=== PATIENT | female | born 2000 | race Caucasian/White ===

== ENCOUNTER 2021-10-22 06:05 | Inpatient (IN) | payer OTHER ==
--- NOTE | 2021-10-21 09:11 | P.HPOB ---
History of Present Illness H&P Date: 10/21/21 Chief Complaint: Induction of labor This is 20 y.o. female, 1, para 0, with an estimated date of confinement of 10/22/2021, estimated gestational age of 40-0/7 weeks, who presents for induction of labor. She complains of irregular contractions, pressure and back pain. course has been uncomplicated. labs: Hepatitis B surface antigen-neg RPR-NR Rubella-immune Blood type-O+ Antibody screen-neg HIV-NR Hemoglobin-12.2 Toxoplasma-neg Random glucose-75 GC/Chlamydia/Trich-neg ! hr. GTT-136; 3 hr. 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 Works for [employer] Review of Systems Constitutional: Denies chills, Denies fever Eyes: denies blurred vision, denies pain Ears, nose, mouth and throat: Denies headache, Denies sore throat Cardiovascular: Denies chest pain, Denies shortness of breath Respiratory: Denies cough Gastrointestinal: Reports abdominal pain (irregular contractions) Genitourinary: Reports pelvic pain, Reports , Denies dysuria, Denies hematuria Musculoskeletal: Reports low back pain, Denies myalgias Integumentary: Denies pruritus, Denies rash Neurological: Denies numbness, Denies weakness Psychiatric: Reports anxiety, Denies depression Past Medical History Past Medical History: No Reported History Past Surgical History: No Surgical Hx Reported Past Anesthesia/Blood Transfusion Reactions: No Reported Reaction Past Psychological History: Anxiety Smoking Status: Never smoker Past Alcohol Use History: None Reported Past Drug Use History: None Reported - Past Family History Father Family Medical History: Hypertension Medications and Allergies Home Medications Medication Instructions Recorded Confirmed Type Vit No.179/Iron/Folic 1 each PO 10/21/21 History [ Tablet] Allergies Allergy/AdvReac Type Severity Reaction Status Date / Time No Known Allergies Allergy Verified 10/21/21 09:09 Exam Osteopathic Statement: *. No significant issues noted on an osteopathic structural exam other than those noted in the History and Physical/Consult. HEENT: within normal limits Heart: regular rate and rhythm Lungs: clear to auscultation bilaterally Abdomen: , non-tender Cervix: 1 cm/60%/-2 heart tones: 150's by doppler Extremities: neg. Jluis's Assessment and Plan (1) 40 weeks gestation of Status: Acute Code(s): Z3A.40 - 40 WEEKS GESTATION OF SNOMED Code(s): 76786503 Plan: Admission for oxytocin induction of labor. Expectant management. Epidural anesthesia if desired.
[2021-10-22] MEDS ORDERED: TERBUTALINE 1 MG/ML VIAL SQ PRN (06:27)
[2021-10-22] MEDS ORDERED: CARBOPROST TROMETHAMINE 250 MCG/ML 1 ML AMP IM PRN (06:27)
[2021-10-22] MEDS ORDERED: LIDOCAINE 1% (10MG/ML) FOR IV START INTRADERMA PRN (06:27)
[2021-10-22] MEDS ORDERED: METHYLERGONOVINE 0.2 MG/ML 1 ML AMP IM PRN (06:27)
[2021-10-22] MEDS ORDERED: OXYTOCIN 10 UNIT/ML 1 ML VIAL IM PRN (06:27)
[2021-10-22] MEDS ORDERED: OXYTOCIN 30 UNITS/500 ML NS 30 UNIT in SALINE 1 500ML.BAG IV SCH ×2 (06:27→22:15)
[2021-10-22] MEDS ORDERED: LIDOCAINE 0.5% (PF) 5 MG/ML (50 ML SDV) SQ PRN (06:27)
[2021-10-22] MEDS: LACTATED RINGERS 1,000 ML IV SCH ×3 (06:39→22:26)
[2021-10-22 07:00] LABS: Basophils % (A) 0 %; Eosinophils # (A) 0.1 k/uL (0-0.7); Eosinophils % (A) 1 %; HCT 33.6 % (34.0-46.0); HGB 11.5 gm/dL (11.4-16.0); Lymphocytes # (A) 2.1 k/uL (1.0-4.8); Lymphocytes % (A) 17 %; MCH 30.8 pg (25.0-35.0); MCHC 34.2 g/dL (31.0-37.0); MCV 89.8 fL (80.0-100.0); Mean Platelet Volume 8.4; Monocytes # (A) 0.6 k/uL (0-1.0); Monocytes % (A) 5 %; Neutrophils # (A) 9.1 k/uL (1.3-7.7); Neutrophils % (A) 75 %; Platelet Count 267 k/uL (150-450); RBC 3.74 m/uL (3.80-5.40); RDW 12.8 % (11.5-15.5); WBC 12.1 k/uL (4.0-11.0)
[2021-10-22 07:51] LABS: Amphetamine Screen,Urine Not Detected (NotDetected); Barbiturate Screen,Urine Not Detected (NotDetected); Benzodiazepines Screen,Urine Not Detected (NotDetected); Cocaine Screen,Urine Not Detected (NotDetected); Methadone Screen, Urine Not Detected (NotDetected); Opiate Screen,Urine Not Detected (NotDetected); Oxycodone Screen, Urine Not Detected (NotDetected); Phencyclidine Screen,Urine Not Detected (NotDetected); Tricyclic Antidepressant,Urine Not Detected (NotDetected); Urn Cannabinoid Scrn Detected (NotDetected)
[2021-10-22] MEDS ORDERED: fentaNYL (PF) 50 MCG/ML 5 ML AMP ONE (13:47)
[2021-10-22] MEDS ORDERED: ROPIVACAINE 5 MG/ML 20 ML AMPULE ONE (13:47)
[2021-10-22] MEDS ORDERED: SODIUM CHLORIDE 0.9% 100 ML BAG ONE (13:47)
[2021-10-22] MEDS ORDERED: miSOPROStoL 200 MCG TAB RECTAL STA (21:40)
[2021-10-22] MEDS ORDERED: diphenhydrAMINE 50 MG CAP PO PRN (22:11)
[2021-10-22] MEDS ORDERED: ACETAMINOPHEN TAB 325 MG TAB PO PRN (22:11)
[2021-10-22] MEDS ORDERED: LANOLIN CREAM 5 GM TUBE TOPICAL PRN (22:11)
[2021-10-22] MEDS ORDERED: diphenhydrAMINE 25 MG CAP PO PRN (22:11)
[2021-10-22] MEDS ORDERED: ZOLPIDEM 5 MG TAB PO PRN (22:11)
[2021-10-22] MEDS ORDERED: BENZOCAINE/MENTHOL SPRAY 1 GM/SPRAY AEROSOL TOPICAL PRN (22:11)
[2021-10-22] MEDS ORDERED: HYDROCORTISONE 2.5% RECTAL CREAM 30 GM TUBE RECTAL PRN (22:11)
[2021-10-22] MEDS ORDERED: SIMETHICONE 80 MG CHEWABLE PO PRN (22:11)
[2021-10-22] MEDS ORDERED: diphenhydrAMINE 50 MG/ML 1 ML VIAL IVP PRN ×2 (22:11)
--- NOTE | 2021-10-22 22:20 | P.PROBDLV ---
Vaginal Delivery Note - . Vaginal Delivery Note: The patient progressed to complete dilation after oxytocin induction of labor and artificial rupture of membranes with clear fluid noted. She did initially use next a side for pain control and then did get an epidural. Once reaching complete, she began pushing. She pushed for approximately 45 minutes and then infant's head came to a crown. At this point she precipitously delivered the baby and the bed. Infant was taken to mother's chest and allowed to encarnacion with mother's into skin while waiting for the cord to finish pulsating. Once the chord finished pulsating, cord was clamped and cut. Inspection of the perineum revealed bilateral periurethral and vaginal sulcus tears. The right side was anesthetized with 1% lidocaine and then sutured with 2-0 Vicryl suture in a running locked fashion. Good hemostasis was noted. At this point the placenta was ready to separate and did deliver however membranes were still noted to be attached. I did place a gloved hand within the endometrial cavity to remove a large piece of membrane. Once this was removed oxytocin was opened up and uterus did initially clamped down but then became boggy and filled with clot. Clots were again removed and oxytocin was opened up. She was also given Methergine 0.2 mg IM. This initially did slow the bleeding and the left side of the vaginal vault was then anesthetized with 1% lidocaine and sutured with 3-0 Vicryl suture in a running locked fashion. She still kept flowing and more clots were removed. A gloved hand was again placed up in the uterine cavity and a very ratty contour was palpated within the uterine cavity but no further membranes were palpated. After these clots were removed she was given 1000 g of Cytotec rectally. Uterine massage was also carried out. Finally uterus did firm up fairly well and bleeding was minimal. All sponge counts were correct. All needle counts were correct. Estimated quantitative blood loss is 2400 cc's. Patient will be watched very closely in her recovery and stat CBC will be ordered.
[2021-10-22 23:35] LABS: Basophils % (A) 0 %; Eosinophils # (A) 0.1 k/uL (0-0.7); Eosinophils % (A) 0 %; HCT 30.7 % (34.0-46.0); HGB 10.5 gm/dL (11.4-16.0); Lymphocytes # (A) 0.9 k/uL (1.0-4.8); Lymphocytes % (A) 4 %; MCHC 34.3 g/dL (31.0-37.0); MCV 90.4 fL (80.0-100.0); Mean Platelet Volume 8.6; Monocytes # (A) 0.9 k/uL (0-1.0); Monocytes % (A) 4 %; Neutrophils # (A) 19.2 k/uL (1.3-7.7); Neutrophils % (A) 91 %; Platelet Count 273 k/uL (150-450); RDW 12.7 % (11.5-15.5); WBC 21.2 k/uL (4.0-11.0)
[2021-10-23 05:22] LABS: Basophils % (A) 0 %; Eosinophils # (A) 0.1 k/uL (0-0.7); Eosinophils % (A) 1 %; HCT 24.8 % (34.0-46.0); Lymphocytes # (A) 1.3 k/uL (1.0-4.8); Lymphocytes % (A) 7 %; MCH 30.5 pg (25.0-35.0); MCHC 34.3 g/dL (31.0-37.0); MCV 89.1 fL (80.0-100.0); Mean Platelet Volume 7.8; Monocytes # (A) 0.8 k/uL (0-1.0); Monocytes % (A) 4 %; Neutrophils # (A) 15.5 k/uL (1.3-7.7); Neutrophils % (A) 86 %; Platelet Count 243 k/uL (150-450); RBC 2.79 m/uL (3.80-5.40); RDW 12.9 % (11.5-15.5)
[2021-10-23 05:31] LABS: HGB 8.5 gm/dL (11.4-16.0)
[2021-10-23] MEDS: SENNOSIDES-DOCUSATE SODIUM 1 EACH TAB PO SCH ×2 (07:51→20:12)
[2021-10-23] MEDS: IBUPROFEN 600 MG TAB PO PRN ×2 (07:51→17:21)
[2021-10-23 08:09] VITALS: RESP 16
--- NOTE | 2021-10-23 08:49 | P.PNOBGVD ---
Subjective - Subjective Principal diagnosis: Status post vaginal delivery day #1 Interval history: Patient states she does feel a little weak today. She denies shortness of breath or dizziness, but has not ambulated very much yet. Bleeding has been minimal. She is working at breast-feeding. Pain is fairly well controlled at this time. Patient reports: Reports appetite normal, Reports voiding normally, Reports pain well controlled, Reports ambulating normally [place]: doing well, nursing well Objective - Latest Vital Signs Latest vital signs: Vital Signs Temp Pulse Resp BP Pulse Ox 10/23/21 08:00 98.3 F 94 16 129/80 98 10/23/21 04:00 98.3 F 96 17 137/78 98 10/23/21 00:03 98.0 F 88 16 149/65 10/22/21 23:33 98.1 F 86 16 151/69 98 10/22/21 23:03 99.3 F 86 16 142/63 10/22/21 22:48 98.5 F 98 18 150/67 99 10/22/21 22:33 112 H 18 151/81 97 10/22/21 22:18 109 H 18 126/86 97 10/22/21 22:03 97.9 F 96 18 155/70 100 Intake and Output 10/22/21 10/23/21 10/23/21 22:59 06:59 14:59 Intake Total 267.2 Output Total 2400 153 Balance -2132.8 -153 Intake: Intake, IV Titration 267.2 Amount Oxytocin 30 Units/500 ml 267.2 Ns 30 unit In Saline 1 500ml.bag @ Per Protocol IV .Q0M [facility] Rx#:[id number] Output: Output, Quantitative 2400 153 Blood Loss Other: # Voids 1 2 - Exam Extremities: Present: normal. Absent: tenderness Abdomen: Present: normal appearance, soft. Absent: distention, tenderness Uterus: Present: normal, firm. Absent: tenderness - Labs Labs: Abnormal Lab Results - Last 24 Hours (Table) 10/22/21 10/23/21 Range/Units 22:58 04:48 WBC 21.2 H 18.0 H (4.0-11.0) k/uL RBC 3.40 L 2.79 L (3.80-5.40) m/uL Hgb 10.5 L 8.5 L D (11.4-16.0) gm/dL Hct 30.7 L 24.8 L (34.0-46.0) % Neutrophils # 19.2 H 15.5 H (1.3-7.7) k/uL Lymphocytes # 0.9 L (1.0-4.8) k/uL Assessment and Plan Assessment: Status post vaginal delivery day #1 Acute blood loss anemia due to hemorrhage (1) 40 weeks gestation of Current Visit: No Status: Acute Code(s): Z3A.40 - 40 WEEKS GESTATION OF SNOMED Code(s): 11694209 Plan: Will add iron supplementation today. Patient is encouraged to notify her nurse if she feels dizzy or lightheaded or short of breath. Will recheck CBC sia orrow. Continue to monitor closely.
[2021-10-23] MEDS: FERROUS SULFATE 325 MG TAB PO SCH ×2 (10:05→17:23)
[2021-10-24 06:56] LABS: Basophils % (A) 0 %; Eosinophils # (A) 0.2 k/uL (0-0.7); Eosinophils % (A) 2 %; HCT 22.7 % (34.0-46.0); HGB 7.5 gm/dL (11.4-16.0); Lymphocytes # (A) 2.6 k/uL (1.0-4.8); Lymphocytes % (A) 26 %; MCH 29.6 pg (25.0-35.0); MCHC 33.1 g/dL (31.0-37.0); MCV 89.2 fL (80.0-100.0); Mean Platelet Volume 7.8; Monocytes # (A) 0.6 k/uL (0-1.0); Monocytes % (A) 6 %; Neutrophils # (A) 6.6 k/uL (1.3-7.7); Neutrophils % (A) 65 %; Platelet Count 229 k/uL (150-450); RBC 2.55 m/uL (3.80-5.40); RDW 12.9 % (11.5-15.5); WBC 10.2 k/uL (4.0-11.0)
[2021-10-24] MEDS: SENNOSIDES-DOCUSATE SODIUM 1 EACH TAB PO SCH (08:04)
[2021-10-24] MEDS: IBUPROFEN 600 MG TAB PO PRN (08:04)
--- NOTE | 2021-10-24 08:58 | P.DS ---
Providers Date of admission: 10/22/21 06:05 Expected date of discharge: 10/24/21 Attending physician: Monica Gaming Primary care physician: Stated None - Discharge Diagnosis(es) (1) 40 weeks gestation of Current Visit: No Status: Acute Hospital Course: This is a 20-year-old female 1 para 0 at 40-0/7 weeks who presented for induction of labor. She delivered vaginally a viable female infant with scores of 7 at 1 minute and 9 at 5 minutes and infant weight of 7 lbs. 14 oz. Her delivery was complicated by hemorrhage. Please see delivery note for details of admission and delivery. course has been essentially uncomplicated. She is ambulating without dizziness or lightheadedness. She denies shortness of breath or weakness. Her hemoglobin did drop from the start of 11.5-7.5 today. However it has been stable since yesterday. She would like to go home later today as long as baby is able to go. Baby is currently on a bili blanket. Her lochia has been very light currently. Pain is well- controlled with ibuprofen and Tylenol. Vital signs are stable. Abdomen is soft with fundus firm and nontender. Extremities show negative Homans. Impression is status post vaginal delivery day #1, status post hemorrhage-hemoglobin stable at this time. Plan is to discharge home today. Routine instructions are given. She is advised to continue her vitamins in addition to iron twice a day. She may need to continue stool softeners while she is on the iron. She is advised follow-up in the office in 6 weeks for a check. She is advised to call the office if she has any further questions or concerns prior to her appointment time. She does state she has a breast pump at home. Procedures: Oxytocin induction of labor Spontaneous vaginal delivery of viable female on 10/22/2021 Patient Condition at Discharge: Stable Plan - Discharge Summary New Discharge Prescriptions: New Ferrous Sulfate [Iron (65 MG Elemental)] 325 mg PO BID-W/MEALS #60 tab Ibuprofen [Motrin] 600 mg PO Q6HR PRN #60 tab PRN Reason: Mild Pain (Scale 1 To 3) Discharge Medication List Ferrous Sulfate [Iron (65 MG Elemental)] 325 mg PO BID-W/MEALS #60 tab 10/24/21 [Rx] Ibuprofen [Motrin] 600 mg PO Q6HR PRN #60 tab 10/24/21 [Rx] Follow up Appointment(s)/Referral(s): Monica Gaming DO [Doctor of Osteopathic Medicine] - 12/11/21 11:30 am Activity/Diet/Wound Care/Special Instructions: Instructions 1. Do not begin any exercise program for 3 weeks. 2. Do not resume sexual relations for 3 weeks or longer if uncomfortable. 3. You may take tub baths or showers at any time. 4. You may use tampons if desired after 3 weeks. 5. Keep the area of episiotomy (stitches) clean and dry. 6. If you are not nursing, wear a good fitting, supportive bra during the day and limit fluid intake for at least 1 week to prevent breast engorgement. 7. Call the office, [phone], within the next week to make appointment for your 6 week checkup if it has not already been made. 8. Report any of the following occurrences to the doctor promptly: a. Heavy, excessive bleeding b. Chills, fever c. Burning or frequency of urination d. Pain or redness and breasts if nursing e. Increasing pain or swelling in episiotomy (stitches). In addition to the above instructions, the following additional should be followed: 1. No heavy lifting or straining (exercising) until after 6 week checkup. 2. Keep abdominal incision clean and dry: You may wear a dressing if more comfortable. 3. Make office appointment for 10 days after going home or as instructed by her doctor. Discharge Disposition: HOME SELF-CARE
[2021-10-24] MEDS: FERROUS SULFATE 325 MG TAB PO SCH ×2 (09:36→17:53)
[2021-10-24 16:52] VITALS: BP 133/70; PULSE 94; TEMP 98.2
== END 2021-10-24 17:55 | disposition home or self-care (01) | DRG 806 ==
LOC: 4FBP 06:05
PROVIDERS: ADMIT Obstetrics & Gynecology; ATTEND Obstetrics & Gynecology
PROC: 10E0XZZ Delivery of Products of Conception, External Approach (ICD-10-PCS; principal; 2021-10-22)
PROC: 10907ZC Drainage of Amniotic Fluid, Therapeutic from Products of Conception, Via Natural or Artificial Opening (ICD-10-PCS; 2021-10-22)
PROC: 0UQMXZZ Repair Vulva, External Approach (ICD-10-PCS; 2021-10-22)
PROC: 0UQG7ZZ Repair Vagina, Via Natural or Artificial Opening (ICD-10-PCS; 2021-10-22)
PROC: 3E033VJ Introduction of Other Hormone into Peripheral Vein, Percutaneous Approach (ICD-10-PCS; 2021-10-22)
PROC: 4A0HXCZ Measurement of Products of Conception, Cardiac Rate, External Approach (ICD-10-PCS; 2021-10-22)
DX: O62.3 Precipitate labor (principal); D62 Acute posthemorrhagic anemia; Z37.0 Single live birth; O72.2 Delayed and secondary postpartum hemorrhage; O71.4 Obstetric high vaginal laceration alone; F41.9 Anxiety disorder, unspecified; O99.344 Other mental disorders complicating childbirth; O90.81 Anemia of the puerperium; Z3A.40 40 weeks gestation of pregnancy; O71.82 Other specified trauma to perineum and vulva
CPT/HCPCS: 80306; 85025; 86850; 86900; 86901; 88307

== ENCOUNTER 2022-11-21 06:07 | Inpatient (IN) | payer OTHER ==
--- NOTE | 2022-11-20 17:32 | P.HPOB ---
History of Present Illness H&P Date: 11/20/22 Chief Complaint: Induction of labor, back pain This is a 21 y.o. female, 2, para 1, with an estimated date of confinement of 11/27/2022 based on LMP consistent with 8 week US, estimated gestational age of 39-1/7 weeks, who presents for induction of labor due to severe back pain and spasms. She complains of irregular contractions and pressure. Her course was complicated by back pain. Her 1 hour glucola was high, but 3 hr. GTT was normal. labs: GC/Chlamydia/Trich-neg Hemoglobin-11.5 Blood type-O+ Antibody screen-neg Rubella-immune Toxoplasma-neg RPR-NR HIV-NR Hepatitis C-neg Hepatitis B surface antigen-neg GBS-neg OB Hx: . Vaginal delivery at 40 weeks. 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 Works part-time [employer]. Review of Systems Constitutional: Denies chills, Denies fever Eyes: denies blurred vision, denies pain Ears, nose, mouth and throat: Denies headache, Denies sore throat Cardiovascular: Denies chest pain, Denies shortness of breath Respiratory: Denies cough Gastrointestinal: Reports abdominal pain (irregular contractions) Genitourinary: Reports pelvic pain, Reports Musculoskeletal: Reports low back pain Integumentary: Denies pruritus, Denies rash Neurological: Denies numbness, Denies weakness Psychiatric: Reports anxiety Past Medical History Additional Past Medical History / Comment(s): heart murmur History of Any Multi-Drug Resistant Organisms: None Reported Past Surgical History: No Surgical Hx Reported Past Anesthesia/Blood Transfusion Reactions: No Reported Reaction Past Psychological History: Anxiety, Depression Smoking Status: Vaper Past Alcohol Use History: None Reported Past Drug Use History: None Reported - Past Family History Father Family Medical History: Hypertension Medications and Allergies Home Medications Medication Instructions Recorded Confirmed Type Vit No.180/Iron/Folic 1 each PO 11/20/22 History [ Plus Tablet] Allergies Allergy/AdvReac Type Severity Reaction Status Date / Time No Known Allergies Allergy Verified 10/27/21 17:29 Exam Osteopathic Statement: *. No significant issues noted on an osteopathic structural exam other than those noted in the History and Physical/Consult. HEENT: within normal limits Heart: regular rate and rhythm Lungs: clear to auscultation bilaterally Abdomen: , non-tender Cervix: 2 cm/60%/-2 heart tones: 140's by doppler Extremities: neg. Jluis's Assessment and Plan (1) 39 weeks gestation of Status: Acute Code(s): Z3A.39 - 39 WEEKS GESTATION OF SNOMED Code(s): 22807666 Plan: Proceed with oxytocin induction of labor. Expectant management. Epidural anesthesia if desired.
[2022-11-21] MEDS: LACTATED RINGERS 1,000 ML IV SCH ×3 (06:20→15:32)
[2022-11-21] MEDS ORDERED: LIDOCAINE 0.5% (PF) 5 MG/ML (50 ML SDV) SQ PRN (06:43)
[2022-11-21] MEDS ORDERED: LIDOCAINE 1% (10MG/ML) FOR IV START INTRADERMA PRN (06:43)
[2022-11-21] MEDS ORDERED: CARBOPROST TROMETHAMINE 250 MCG/ML 1 ML AMP IM PRN (06:43)
[2022-11-21] MEDS ORDERED: OXYTOCIN 10 UNIT/ML 1 ML VIAL IM PRN (06:43)
[2022-11-21] MEDS ORDERED: METHYLERGONOVINE 0.2 MG/ML 1 ML AMP IM PRN (06:43)
[2022-11-21] MEDS ORDERED: OXYTOCIN 30 UNITS/500 ML NS 30 UNIT in SALINE 1 500ML.BAG IV SCH (06:43)
[2022-11-21] MEDS ORDERED: miSOPROStoL 200 MCG TAB PO PRN (06:43)
[2022-11-21] MEDS ORDERED: TRANEXAMIC 1,000 MG/100ML-NACL 1,000 MG in EMPTY BAG 1 BAG IV PRN (06:43)
[2022-11-21] MEDS ORDERED: TERBUTALINE 1 MG/ML VIAL SQ PRN (06:43)
[2022-11-21 07:09] LABS: Basophils % (A) 0 %; Eosinophils # (A) 0.1 k/uL (0-0.7); Eosinophils % (A) 1 %; HCT 31.8 % (34.0-46.0); HGB 10.5 gm/dL (11.4-16.0); Lymphocytes # (A) 2.2 k/uL (1.0-4.8); Lymphocytes % (A) 22 %; MCH 27.2 pg (25.0-35.0); MCHC 33.1 g/dL (31.0-37.0); MCV 82.2 fL (80.0-100.0); Mean Platelet Volume 8.2; Monocytes # (A) 0.7 k/uL (0-1.0); Monocytes % (A) 7 %; Neutrophils # (A) 7.2 k/uL (1.3-7.7); Neutrophils % (A) 69 %; Platelet Count 215 k/uL (150-450); RBC 3.87 m/uL (3.80-5.40); RDW 14.4 % (11.5-15.5); WBC 10.4 k/uL (4.0-11.0)
[2022-11-21] MEDS ORDERED: ROPIVACAINE 5 MG/ML 30 ML VIAL ONE (11:27)
[2022-11-21] MEDS ORDERED: fentaNYL (PF) 50 MCG/ML 5 ML AMP ONE (11:27)
[2022-11-21] MEDS ORDERED: SODIUM CHLORIDE 0.9% 250 ML BAG ONE (11:27)
--- NOTE | 2022-11-21 17:34 | P.PROBDLV ---
Vaginal Delivery Note - . Vaginal Delivery Note: The patient proceeded to complete dilation after artificial rupture of membranes with clear fluid noted and oxytocin induction of labor. She did receive epidural anesthesia. Once reaching complete, she began pushing. Infant's head came to a crown. With one further push, the infant's head delivered across the perineum followed by the anterior shoulder and a left occiput anterior lie. Nose and mouth were bulb suctioned. With one further push, the remainder the i nfant easily delivered reducing nuchal cord times one around the body with delivery. was placed on mother's abdomen and cord was allowed to finish pulsating. Cord was then clamped and cut. was then taken to warmer for evaluation. A viable female infant was noted with scores of 9 at 1 minute and 9 at 5 minutes and infant weight was 6 lbs. 15 oz. Cord blood was obtained secondary to O+ blood type. Placenta delivered approximately 8 minutes later intact with a three-vessel cord. Uterus initially contracted fairly well after oxytocin was given and uterine massage was carried out. After a few minutes she was still bleeding a little heavier and fundus was again massaged with several clots removed. A gloved hand was placed within the uterine cavity and a few small pieces of membranous type tissue were removed. There was a slightly ratty contour to the endometrial cavity consistent with decidual type changes. No further tissue was obtained and uterus firmed up fairly well. Inspection of the perineum revealed a left periurethral laceration. This area was anesthetized with 1% lidocaine and then sutured with 3-0 Vicryl suture in a running locked fashion. Estimated blood loss was approximately 350 mL's. Quantitative blood loss did reveal 830 mL however there was quite a bit of fluid that came out with baby that was weighed with the drape. Both mother and infant are in stable condition. No active bleeding is noted at this time.
[2022-11-22] MEDS ORDERED: LANOLIN CREAM 5 GM TUBE TOPICAL PRN (00:01)
[2022-11-22] MEDS ORDERED: ZOLPIDEM 5 MG TAB PO PRN (00:01)
[2022-11-22] MEDS ORDERED: HYDROCORTISONE 2.5% RECTAL CREAM 30 GM TUBE RECTAL PRN (00:01)
[2022-11-22] MEDS ORDERED: diphenhydrAMINE 50 MG CAP PO PRN (00:01)
[2022-11-22] MEDS ORDERED: SIMETHICONE 80 MG CHEWABLE PO PRN (00:01)
[2022-11-22] MEDS ORDERED: ACETAMINOPHEN TAB 325 MG TAB PO PRN (00:01)
[2022-11-22] MEDS ORDERED: BENZOCAINE/MENTHOL SPRAY 1 GM/SPRAY AEROSOL TOPICAL PRN (00:01)
[2022-11-22] MEDS ORDERED: diphenhydrAMINE 25 MG CAP PO PRN (00:01)
[2022-11-22] MEDS: IBUPROFEN 600 MG TAB PO PRN ×2 (05:02→15:46)
[2022-11-22] MEDS: SENNOSIDES-DOCUSATE SODIUM 1 EACH TAB PO SCH ×2 (08:45→13:28)
--- NOTE | 2022-11-22 08:54 | P.DS ---
Providers Date of admission: 11/21/22 06:07 Expected date of discharge: 11/22/22 Attending physician: Monica Gaming Primary care physician: Stated None - Discharge Diagnosis(es) (1) 39 weeks gestation of Current Visit: No Status: Acute Hospital Course: This is a 21-year-old female 2 para 1 at 39 and one sevenths weeks who presented for induction of labor. She underwent oxytocin induction of labor and delivered vaginally a viable female infant with scores of 9 at 1 minute and 9 at 5 minutes and weight of 6 lbs. 15 oz. Her course has been uncomplicated. She is breast-feeding. Lochia has been decreasing. Her pain is well-controlled. She denies any dizziness, shortness of breath or weakness. Her vital signs are stable. Abdomen is soft with fundus firm and nontender. Extremities show negative Homans. Impression is status post vaginal delivery day #1. Plan is to discharge home later today. We'll recheck a CBC prior to discharge. Routine instructions are given. She is advised to follow up in the office in 6 weeks for check. She is advised to call the office if she has any further questions or concerns prior to her appointment time. Procedures: Oxytocin induction of labor Spontaneous vaginal delivery of a viable female infant on 11/21/2022 Patient Condition at Discharge: Stable Plan - Discharge Summary New Discharge Prescriptions: New Ibuprofen [Motrin] 600 mg PO Q6HR PRN #60 tab PRN Reason: Mild Pain (Scale 1 To 3) Continue Vit No.180/Iron/Folic [ Plus Vitamin-Mineral] 1 each PO Discharge Medication List Vit No.180/Iron/Folic [ Plus Vitamin-Mineral] 1 each PO 11/20/22 [History] Ibuprofen [Motrin] 600 mg PO Q6HR PRN #60 tab 11/22/22 [Rx] Follow up Appointment(s)/Referral(s): Monica Gaming DO [Doctor of Osteopathic Medicine] - 01/03/23 11:30 am Activity/Diet/Wound Care/Special Instructions: Instructions 1. Do not begin any exercise program for 3 weeks. 2. Do not resume sexual relations for 3 weeks or longer if uncomfortable. 3. You may take tub baths or showers at any time. 4. You may use tampons if desired after 3 weeks. 5. Keep the area of episiotomy (stitches) clean and dry. 6. If you are not nursing, wear a good fitting, supportive bra during the day and limit fluid intake for at least 1 week to prevent breast engorgement. 7. Call the office, [phone], within the next week to make appointment for your 6 week checkup if it has not already been made. 8. Report any of the following occurrences to the doctor promptly: a. Heavy, excessive bleeding b. Chills, fever c. Burning or frequency of urination d. Pain or redness and breasts if nursing e. Increasing pain or swelling in episiotomy (stitches). In addition to the above instructions, the following additional should be followed: 1. No heavy lifting or straining (exercising) until after 6 week checkup. 2. Keep abdominal incision clean and dry: You may wear a dressing if more comfortable. 3. Make office appointment for 10 days after going home or as instructed by her doctor. Discharge Disposition: HOME SELF-CARE
[2022-11-22 09:49] LABS: HCT 31.9 % (34.0-46.0); HGB 10.4 gm/dL (11.4-16.0); MCH 26.9 pg (25.0-35.0); MCHC 32.6 g/dL (31.0-37.0); MCV 82.6 fL (80.0-100.0); Mean Platelet Volume 8.6; Platelet Count 229 k/uL (150-450); RBC 3.86 m/uL (3.80-5.40); RDW 14.3 % (11.5-15.5); WBC 12.3 k/uL (4.0-11.0)
[2022-11-22 17:56] VITALS: BP 131/82; PULSE 90; RESP 18; TEMP 98
== END 2022-11-22 17:45 | disposition home or self-care (01) | DRG 560 ==
LOC: 4FBP 06:07
PROVIDERS: ADMIT Obstetrics & Gynecology; ATTEND Obstetrics & Gynecology
PROC: 10D17Z9 Manual Extraction of Products of Conception, Retained, Via Natural or Artificial Opening (ICD-10-PCS; principal; 2022-11-21)
PROC: 10907ZC Drainage of Amniotic Fluid, Therapeutic from Products of Conception, Via Natural or Artificial Opening (ICD-10-PCS; principal; 2022-11-21)
PROC: 10E0XZZ Delivery of Products of Conception, External Approach (ICD-10-PCS; principal; 2022-11-21)
PROC: 0UQMXZZ Repair Vulva, External Approach (ICD-10-PCS; principal; 2022-11-21)
PROC: 3E033VJ Introduction of Other Hormone into Peripheral Vein, Percutaneous Approach (ICD-10-PCS; principal; 2022-11-21)
DX: O75.89 Other specified complications of labor and delivery (principal); M54.9 Dorsalgia, unspecified; O99.344 Other mental disorders complicating childbirth; F41.9 Anxiety disorder, unspecified; F32.A Depression, unspecified; O99.334 Smoking (tobacco) complicating childbirth; F17.290 Nicotine dependence, other tobacco product, uncomplicated; O69.81X0 Labor and delivery complicated by cord around neck, without compression, not applicable or unspecified; O71.82 Other specified trauma to perineum and vulva; O73.1 Retained portions of placenta and membranes, without hemorrhage; Z87.59 Personal history of other complications of pregnancy, childbirth and the puerperium; Z3A.39 39 weeks gestation of pregnancy; Z37.0 Single live birth
CPT/HCPCS: 85025; 85027; 86850; 86900; 86901